=== PATIENT | male | born 2000 | race Caucasian/White ===

== ENCOUNTER 2022-01-25 10:30 | Emergency (ER) | payer MEDICAID ==
[~2022-01-25] VITALS: Ht 167.6 cm; Wt 60.0 kg
[2022-01-25 11:30] VITALS: BP 100/63
[2022-01-25 15:34] LABS: BASOPHILS % 0.5 % (0.0-2.0); EOSINOPHILS % 0.6 % (0.0-5.0); HEMATOCRIT. 42.8 % (42.0-52.0); HEMOGLOBIN. 14.5 g/dL (14.0-18.0); LYMPHOCYTES % 32.1 % (20.0-50.0); MEAN CORPUSCULAR HEMOGLOBIN 31.1 pg (28.0-32.0); MEAN CORPUSCULAR VOLUME 92.1 fL (80.0-94.0); MEAN PLATELET VOLUME 9.1 fl (7.4-10.4); MONOCYTES % 5.4 % (2.0-8.0); NEUTROPHILS % 61.4 % (40.0-76.0); PLATELET 266 x1000/uL (130-400); RED BLOOD CELL COUNT 4.66 mill/uL (4.7-6.1); RED CELL DISTRIBUTION WIDTH 14.3 % (11.6-14.6)
[2022-01-25 15:36] LABS: *AMPHETAMINES SCREEN URINE NEGATIVE (NEGATIVE); *BARBITURATES SCREEN URINE NEGATIVE (NEGATIVE); *BENZODIAZEPINES SCREEN URINE NEGATIVE (NEGATIVE); *COCAINE SCREEN URINE NEGATIVE (NEGATIVE); CANNABINOID URINE SCREEN NEGATIVE (NEGATIVE); METHADONE URINE SCREEN NEGATIVE (NEGATIVE); OPIATES URINE SCREEN NEGATIVE (NEGATIVE); PHENCYCLIDINE URINE SCREEN NEGATIVE (NEGATIVE)
[2022-01-25 15:41] LABS: CHLORIDE 102 mEq/L (98-107)
[2022-01-25 15:49] LABS: ETHANOL BLOOD < 10 mg/dL
== END 2022-01-25 19:05 | disposition home or self-care (01) ==
LOC: ER 10:30
DX: F29 Unspecified psychosis not due to a substance or known physiological condition (principal)
CPT/HCPCS: 36415; 80048; 80305; 80307; 80320; 80329; 85025; 99283; G0480

== ENCOUNTER 2022-06-18 18:12 | Inpatient (IN) | payer MEDICAID ==
[~2022-06-18] VITALS: Ht 167.6 cm; Wt 59.9 kg
[2022-06-18] MEDS ORDERED: VANCOMYCIN 1G PREMIX 200 ML IV ONE (22:15)
[2022-06-18] MEDS ORDERED: CEFTRIAXONE 1 G PREMIX 50 ML IV ONE (22:15)
[2022-06-18] MEDS ORDERED: SODIUM CHLORIDE 0.9% 1000ML BAG (SEPSIS BOLUS) IV ONE (22:15)
[2022-06-18] MEDS ORDERED: DOXYCYCLINE 100 MG in DEXT 5% WATER 100 ML IV STA (22:27)
[2022-06-18] MEDS ORDERED: TETANUS, DIPHTHERIA, PERTUSSIS VAC/PF 0.5ML (>10YR OLD) IM ONE (22:45)
[2022-06-18 23:25] LABS: CLARITY URINE TURBID (CLEAR); COLOR URINE YELLOW (YELLOW); KETONES URINE NEGATIVE (NEGATIVE); LEUKOCYTE ESTERASE URINE NEGATIVE (NEGATIVE); NITRITE URINE NEGATIVE (NEGATIVE); OCCULT BLOOD URINE NEGATIVE (NEGATIVE); PH URINE 7.5 (4.5-8.0); PROTEIN URINE NEGATIVE (NEGATIVE); SPECIFIC GRAVITY URINE 1.015 (1.005-1.030); UROBILINOGEN URINE 0.2 E.U./dL (0.2-1.0)
[2022-06-18 23:34] LABS: CHLORIDE 103 mEq/L (98-107)
[2022-06-18 23:55] LABS: BASOPHILS % 0.7 % (0.0-2.0); EOSINOPHILS % 2.7 % (0.0-5.0); HEMATOCRIT. 39.8 % (42.0-52.0); HEMOGLOBIN. 13.5 g/dL (14.0-18.0); LYMPHOCYTES % 22.3 % (20.0-50.0); MEAN CORPUSCULAR HEMOGLOBIN 30.6 pg (28.0-32.0); MEAN CORPUSCULAR VOLUME 90.6 fL (80.0-94.0); MEAN PLATELET VOLUME 8.1 fl (7.4-10.4); MONOCYTES % 6.4 % (2.0-8.0); NEUTROPHILS % 67.9 % (40.0-76.0); PLATELET 341 x1000/uL (130-400); RED CELL DISTRIBUTION WIDTH 13.4 % (11.6-14.6)
[2022-06-19 03:00] VITALS: BP 92/39
[2022-06-19 04:00] VITALS: BP 92/39
[2022-06-19] MEDS ORDERED: HYDROCODONE/ACETAMINOPHEN 10/325MG TABLET PO PRN (06:45)
[2022-06-19] MEDS ORDERED: NALOXONE HCL 0.4MG/ML VIAL IV PRN (07:00)
[2022-06-19] MEDS ORDERED: PIPERACILLIN/TAZOBACTAM 3.375G in DEXT 5% WATER 50ML IV SCH (07:30)
[2022-06-19 08:00] VITALS: BP 99/49
[2022-06-19] MEDS ORDERED: VANCOMYCIN 1G PREMIX 200 ML IV SCH (08:15)
[2022-06-19] MEDS ORDERED: ONDANSETRON HCL 4MG/2ML INJ IV PRN (08:15)
[2022-06-19] MEDS ORDERED: PIPERACILLIN/TAZ 3.375G PREMIX 50 ML IV SCH (10:00)
[2022-06-19] MEDS: VANCOMYCIN 1G PREMIX 200 ML IV SCH ×2 (10:13→18:12)
[2022-06-19] MEDS: LEVOFLOXACIN 500MG TABLET PO SCH (10:13)
[2022-06-19 12:00] VITALS: BP 113/57
[2022-06-19 16:00] VITALS: BP 104/49
[2022-06-19 20:00] VITALS: BP 96/51
[2022-06-20] VITALS: BP 111/60
[2022-06-20] MEDS: VANCOMYCIN 1G PREMIX 200 ML IV SCH (02:12)
[2022-06-20 04:00] VITALS: BP 102/64
[2022-06-20 07:03] LABS: BASOPHILS % 0.6 % (0.0-2.0); HEMATOCRIT. 39.3 % (42.0-52.0); HEMOGLOBIN. 13.3 g/dL (14.0-18.0); LYMPHOCYTES % 30.3 % (20.0-50.0); MEAN CORPUSCULAR HEMOGLOBIN 30.7 pg (28.0-32.0); MEAN CORPUSCULAR VOLUME 90.6 fL (80.0-94.0); MEAN PLATELET VOLUME 8.2 fl (7.4-10.4); MONOCYTES % 6.8 % (2.0-8.0); NEUTROPHILS % 59.3 % (40.0-76.0); PLATELET 313 x1000/uL (130-400); RED BLOOD CELL COUNT 4.34 mill/uL (4.7-6.1); RED CELL DISTRIBUTION WIDTH 13.3 % (11.6-14.6)
[2022-06-20 07:31] LABS: CHLORIDE 105 mEq/L (98-107)
[2022-06-20 08:00] VITALS: BP 99/52
[2022-06-20] MEDS ORDERED: VANCOMYCIN 750MG PREMIX 150 ML IV SCH (10:00)
[2022-06-20] MEDS: LEVOFLOXACIN 500MG TABLET PO SCH (11:14)
[2022-06-20 12:00] VITALS: BP 93/60
[2022-06-20] MEDS ORDERED: AMOX1TAB16 MT (13:51)
[2022-06-20 16:16] VITALS: BP 99/52
[2022-06-20 16:19] VITALS: BP 99/45
== END 2022-06-20 16:55 | disposition home or self-care (01) | DRG 501 ==
LOC: ER 18:12 → MICUSO 06-19 00:25 → EDBEDREQTM 06-19 00:27 → EDBEDREQDT 06-19 00:27 → EDBEDREQ 06-19 00:27 → ENRESERV 06-19 03:37 → 6EST 06-19 03:42
PROVIDERS: ADMIT Internal Medicine; ATTEND Internal Medicine
DX: N48.22 Cellulitis of corpus cavernosum and penis (principal); F41.1 Generalized anxiety disorder; Z20.822 Contact with and (suspected) exposure to COVID-19; N47.1 Phimosis
CPT/HCPCS: 36415; 80048; 80053; 80202; 81003; 83605; 85025; 86592; 87426; 90715; 93005; 99285; C9803; J0696; J2405; J2543; J3370; J3490; J7030; J7060